=== PATIENT | female | born 1955 | race Caucasian/White ===

== ENCOUNTER 2017-09-06 09:51 | Emergency (ER) | payer SELFPAY ==
[2017-09-06] MEDS ORDERED: Sodium Chloride 0.9% 10 ML Syringe FLUSH PRN (09:54)
[2017-09-06] MEDS ORDERED: Sodium Chloride 0.9% 2.5 ML Syringe FLUSH PRN (09:54)
--- NOTE | 2017-09-06 10:12 | EDM.PDOC ---
ED HPI GENERAL MEDICAL PROBLEM - General Chief Complaint: Neuro Symptoms/Deficits Stated Complaint: ABM/ STROKE Time Seen by Provider: 09/06/17 09:55 Source of Information: Reports: Patient, EMS History Limitations: Reports: No Limitations - History of Present Illness INITIAL COMMENTS - FREE TEXT/NARRATIVE: HISTORY AND PHYSICAL: History of present illness: [Patient is brought to the emergency room by EMS with complaints of left-sided weakness and disorientation. 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 At 0935, another parent dropped off their child and found the patient with slurred speech and disoriented. The bystander gave 2 aspirin and called 911. Patient arrives to the emergency room with left-sided weakness noted to her upper and lower extremities. Her speech is slurred and slow. Left sided mouth droop is noted. Has a history of type 2 diabetes for which she takes metformin. No prior history of CVA or CAD. Denies bleeding and clotting disorders. No recent falls surgeries or blood draws. Reports a history of hypertension many years ago, but none recent. Does not take aspirin or blood thinner. No recent illness or injury. No fever or chills. Denies chest pain shortness of breath and difficulty breathing. She has not had any pain today. Reported some dizziness that occurred while she was at home feeling weak. No falls. No abdominal pain nausea or vomiting. No change in bowel or bladder. Denies mood changes. ] Review of systems: As per history of present illness and below otherwise all systems reviewed and negative. Past medical history: As per history of present illness and as reviewed below otherwise noncontributory. Surgical history: As per history of present illness and as reviewed below otherwise noncontributory. Social history: No reported history of drug or alcohol abuse. Family history: As per history of present illness and as reviewed below otherwise noncontributory. Physical exam: HEENT: Atraumatic, normocephalic. Oral mucous membranes are pink and moist. Lungs: Clear to auscultation, breath sounds equal bilaterally. Heart: S1S2, regular rate and rhythm. Abdomen: Obese, Soft, nondistended, nontender. Negative for masses, guarding or rebound. Pelvis: Stable nontender. Genitourinary: Deferred. Rectal: Deferred. Extremities: Atraumatic in appearance. No pedal swelling or cyanosis. She is unsteady on her feet when she gets up to step onto the scale. Neurovascular is otherwise unremarkable. Neuro: Awake, alert, oriented. Good historian. Mild facial droop is noted on the left side, particularly over her mouth. Speech is slow and mildly slurred. Left upper extremity pronator drift noted. Left upper and lower extremity weakness is appreciated. Cranial nerves II through XII unremarkable. Cerebellum unremarkable. Motor and sensory unremarkable throughout. Exam is otherwise nonfocal. Diagnostics: [CBC, CMP, PT/PTT/INR, troponin, TSH, head CT without contrast, EKG] Therapeutics: [tPa 9mg bolus, 81mg drip] Impression: [CVA] Plan: [CT shows no acute findings. Labs are unremarkable. EKG shows normal sinus rhythm with a rate of 69. Dr. Seo contacted at 1035 recommend starting TPA and transfer to [place] for possible thrombectomy. [place] is contacted at 1038 they are checking for an ICU bed and will call back to the ER. Dr. Seo is present in the emergency room at 10:48 AM and is evaluating patient. TPA is given at 1055. At 1106, Dr. Mccrary at [facility] ER in [place] agrees to accept patient in transfer. Flight is arranged by nursing staff. Patient begins to demonstrate improvement of facial droop and weakness 5 minutes after TPA is given. She is discharged from ER with flight team. Patient and her family are in agreement with today's discussion and plan for air transfer. Questions are answered and concerns are addressed. Definitive disposition and diagnosis as appropriate pending reevaluation and review of above. - Related Data Allergies Allergy/AdvReac Type Severity Reaction Status Date / Time Sulfa (Sulfonamide Allergy Cannot Verified 09/06/17 09:52 Antibiotics) Remember Home Meds: Home Meds metFORMIN [Glucophage XR] 1,000 mg PO BID 09/06/17 [History] ED ROS GENERAL - Review of Systems Review Of Systems: ROS reveals no pertinent complaints other than HPI. ED EXAM, NEURO - Physical Exam Exam: See Below Course - Vital Signs Last Recorded V/S: Last Vital Signs Temp 96.9 F 09/06/17 09:54 Pulse 87 09/06/17 11:10 Resp 18 09/06/17 11:10 BP 180/86 H 09/06/17 11:10 Pulse Ox 97 09/06/17 11:10 - Orders/Labs/Meds Orders: Active Orders 24 hr Category Date Time Status Assess Neurological Status [RC] ASDIRECTED Care 09/06/17 09:54 Active Bedrest [RC] ASDIRECTED Care 09/06/17 09:54 Active Blood Glucose Check, Bedside [RC] STAT Care 09/06/17 09:54 Active Cardiac Monitoring [RC] . DIRECTED Care 09/06/17 09:54 Active EKG Documentation Completion [RC] STAT Care 09/06/17 09:54 Active Height and Weight [RC] UPON Care 09/06/17 09:54 Active Initiate Acute Stroke Protocol [RC] STAT Care 09/06/17 09:54 Active NIH Stroke Scale [RC] ASDIRECTED Care 09/06/17 09:54 Active Nursing Bedside Swallow Screen [RC] ASDIRECTED Care 09/06/17 09:54 Active Oxygen Therapy [RC] ASDIRECTED Care 09/06/17 09:54 Active Stroke Education, General [] Click to Edit Care 09/06/17 09:54 Active Vital Signs [RC] Q15M Care 09/06/17 09:54 Active Alteplase [Activase] 90 mg Med 09/06/17 10:45 Active Premix Bag 1 bag IV .INFUSION Sodium Chloride 0.9% [Saline Flush] Med 09/06/17 09:54 Active 10 ml FLUSH ASDIRECTED PRN Sodium Chloride 0.9% [Saline Flush] Med 09/06/17 09:54 Active 2.5 ml FLUSH ASDIRECTED PRN Peripheral IV Insertion Adult [OM.PC] Stat Ot 09/06/17 09:54 Ordered Peripheral IV Insertion Adult [OM.PC] Stat Ot 09/06/17 09:54 Ordered Medication Orders Alteplase, Recombinant 90 mg/ (Premix) 0 mls @ 0 mls/hr IV .INFUSION KRISTY Last Admin: 09/06/17 11:04 Dose: 81 mls/hr Sodium Chloride (Saline Flush) 10 ml FLUSH ASDIRECTED PRN PRN Reason: Keep Vein Open Last Admin: 09/06/17 11:05 Dose: 10 ml Sodium Chloride (Saline Flush) 2.5 ml FLUSH ASDIRECTED PRN PRN Reason: Keep Vein Open Last Admin: 09/06/17 11:05 Dose: 2.5 ml Labs: Laboratory Tests 09/06/17 09/06/17 09/06/17 Range/Units 10:30 10:30 10:30 WBC 8.99 (4.0-11.0) K/uL RBC 4.61 (4.30-5.90) M/uL Hgb 13.0 (12.0-16.0) g/dL Hct 40.6 (36.0-46.0) % MCV 88.1 (80.0-98.0) fL MCH 28.2 (27.0-32.0) pg MCHC 32.0 (31.0-37.0) g/dL RDW Std Deviation 46.4 (28.0-62.0) fl RDW Coeff of Nahomy 14 (11.0-15.0) % Plt Count 318 (150-400) K/uL MPV 10.10 (7.40-12.00) fL Neut % (Auto) 55.4 (48.0-80.0) % Lymph % (Auto) 34.3 (16.0-40.0) % [place] % (Auto) 6.5 (0.0-15.0) % Eos % (Auto) 3.1 (0.0-7.0) % Baso % (Auto) 0.7 (0.0-1.5) % Neut # (Auto) 5.0 (1.4-5.7) K/uL Lymph # (Auto) 3.1 H (0.6-2.4) K/uL [place] # (Auto) 0.6 (0.0-0.8) K/uL Eos # (Auto) 0.3 (0.0-0.7) K/uL Baso # (Auto) 0.1 (0.0-0.1) K/uL Nucleated RBC % 0.0 /100WBC Nucleated RBCs # 0 K/uL INR 1.04 APTT 25.1 (18.6-31.3) SEC Sodium 135 L (136-145) mmol/L Potassium 3.8 (3.5-5.1) mmol/L Chloride 99 (98-107) mmol/L Carbon Dioxide 26.2 (21.0-32.0) mmol/L BUN 15 (7.0-18.0) mg/dL Creatinine 0.9 (0.6-1.0) mg/dL Est Cr Clr Drug Dosing TNP Estimated GFR (MDRD) > 60.0 ml/min Glucose 204 H (74-106) mg/dL Calcium 8.9 (8.5-10.1) mg/dL Total Bilirubin 0.4 (0.2-1.0) mg/dL AST 35 (15-37) IU/L ALT 33 (14-63) IU/L Alkaline Phosphatase 69 (46-116) U/L Troponin I < 0.050 (0.000-0.056) ng/mL Total Protein 8.3 H (6.4-8.2) g/dL Albumin 3.4 (3.4-5.0) g/dL Globulin 4.9 H (2.0-3.5) g/dL Albumin/Globulin Ratio 0.7 L (1.3-2.8) TSH 3rd Generation 1.23 (0.36-3.74) uIU/mL Meds: Medications Generic Name Dose Route Start Last Admin Trade Name Freq PRN Reason Stop Dose Admin Alteplase, Recombinant 90 mg/ 0 mls @ 0 mls/hr 09/06/17 10:45 09/06/17 11:04 Premix IV 81 mls/hr .INFUSION KRISTY Administration Sodium Chloride 10 ml 09/06/17 09:54 09/06/17 11:05 Saline Flush FLUSH 10 ml ASDIRECTED PRN Administration Keep Vein Open Sodium Chloride 2.5 ml 09/06/17 09:54 09/06/17 11:05 Saline Flush FLUSH 2.5 ml ASDIRECTED PRN Administration Keep Vein Open Discontinued Medications Generic Name Dose Route Start Last Admin Trade Name Freq PRN Reason Stop Dose Admin Alteplase, Recombinant Confirm 09/06/17 10:40 09/06/17 11:05 Activase Administered 09/06/17 10:41 Not Given Dose 100 mg .ROUTE .STK-MED ONE Departure - Departure Time of Disposition: 12:05 Disposition: DC/Tfer to Acute Hospital 02 Condition: Good Clinical Impression: CVA (cerebral vascular accident) - Discharge Information Forms: ED Department Discharge
--- NOTE | 2017-09-06 10:15 | CT ---
EXAMINATION: Non contrast CT head. Coronal and sagittal reformats. HISTORY: Stroke code FINDINGS: No evidence of intra or extra axial hemorrhage, mass, midline shift, hydrocephalus or edema. Mild pe riventricular and subcortical white matter hypodensities are noted. No hypoattenuation changes in the major vascular territories to suggest acute infarct. No abnormal intracranial calcifications are detected. Stable left vertebral vascular calcifications. Paranasal sinuses and mastoid air cells are well aerated without substantial findings. Orbits and gl obes are symmetric. Pituitary fossa appears unremarkable. Calvarium is intact. No evidence of skull fracture. IMPRESSION: 1. No acute intracranial findings. 2. Mild small vessel ischemic changes. The findings were called to ER 10:12 AM.
[2017-09-06] MEDS ORDERED: Alteplase 90 MG in Premix Bag 1 BAG IV SCH (10:45)
[2017-09-06 11:08] LABS: CHLORIDE,CL 99 mmol/L (98-107); SODIUM,NA 135 mmol/L (136-145)
--- NOTE | 2017-09-06 12:39 | EDM.PDOC ---
ED HPI GENERAL MEDICAL PROBLEM - General Chief Complaint: Neuro Symptoms/Deficits Stated Complaint: ABM/ STROKE Time Seen by Provider: 09/06/17 09:55 Source of Information: Reports: Patient, EMS History Limitations: Reports: No Limitations - History of Present Illness INITIAL COMMENTS - FREE TEXT/NARRATIVE: She was last observed to be normal at 8:50 am when a parent dropped off a child. . She reports that she developed developed dizziness/ imbalance, but is not sure when it started. She was noted to have slurred speech 9:35 by bystander. No history of stroke, TIA, bleeding, tumors, recent surgery. No vision changes, vertigo, CP, SOB, nausea, fever, headaches. - Related Data Allergies Allergy/AdvReac Type Severity Reaction Status Date / Time Sulfa (Sulfonamide Allergy Cannot Verified 09/06/17 09:52 Antibiotics) Remember Home Meds: Home Meds metFORMIN [Glucophage XR] 1,000 mg PO BID 09/06/17 [History] Past Medical History Endocrine/Metabolic History: Reports: Diabetes, Type II Social & Family History - Family History Other Cardiac Family History: Father had [place] - Tobacco Use Smoking Status *Q: Never Smoker - Caffeine Use Caffeine Use: Reports: None - Recreational Drug Use Recreational Drug Use: No ED ROS GENERAL - Review of Systems Review Of Systems: See Below Constitutional: Reports: No Symptoms HEENT: Reports: No Symptoms Respiratory: Reports: No Symptoms Cardiovascular: Reports: No Symptoms GI/Abdominal: Reports: No Symptoms : Reports: No Symptoms Musculoskeletal: Reports: No Symptoms Neurological: Reports: Dizziness, Weakness ED EXAM, NEURO - Physical Exam Exam: See Below Comments: Constitutional: No acute distress Psychiatric: Mood/Affect: normal/appropriate Neurological: NIHSS 5 Mental Status: Naming and repetition intact. General: Normal activity, good hygiene, appropriate appearance. Level of consciousness: Awake, alert. Concentration/Attention Span: Normal. Comprehension/Praxis: Able to perform a three step command. Fund of Knowledge/memory: Adequate recent and remote recall. Language: Fluent and articulate without evidence of aphasia Cranial Nerves: Pupils equally round and reactive to light. Visual manzo full to confrontation. Gaze conjugate, EOMI. Sensation intact and symmetric to light touch. Mild left facial droop. Mild dysarthria. . Palate elevates symmetrically. Normal shrug bilaterally. Tongue protrudes midline Motor: Normal tone in all groups. Drift in left upper and lower limb. Power 4/ 5 in left intrinsic hand muscles, o/w 5/5 throughout. . Sensation: Sensation is intact to light touch and temp, no extinction Deep tendon reflexes: Diminished throughout. Coordination: Finger to nose impaired on the left, HTS intact bilaterally Gait: Requires 2 person assist to stand HEENT: Eyes: non icteric, Mouth: moist mucus membranes Cardiovascular: RRR, no obvious murmur Respiratory: clear lungs GI: non tender Musculoskeletal: non tender Addendum repeat examination 11:55 after TPA, power 5/5 throughout, no drift, minimal left NL flattening. Course - Vital Signs Last Recorded V/S: Last Vital Signs Temp 36.1 C 09/06/17 09:54 Pulse 87 09/06/17 11:10 Resp 18 09/06/17 11:10 BP 180/86 H 09/06/17 11:10 Pulse Ox 97 09/06/17 11:10 - Orders/Labs/Meds Labs: Laboratory Tests 09/06/17 09/06/17 09/06/17 Range/Units 10:30 10:30 10:30 WBC 8.99 (4.0-11.0) K/uL RBC 4.61 (4.30-5.90) M/uL Hgb 13.0 (12.0-16.0) g/dL Hct 40.6 (36.0-46.0) % MCV 88.1 (80.0-98.0) fL MCH 28.2 (27.0-32.0) pg MCHC 32.0 (31.0-37.0) g/dL RDW Std Deviation 46.4 (28.0-62.0) fl RDW Coeff of Nahomy 14 (11.0-15.0) % Plt Count 318 (150-400) K/uL MPV 10.10 (7.40-12.00) fL Neut % (Auto) 55.4 (48.0-80.0) % Lymph % (Auto) 34.3 (16.0-40.0) % [place] % (Auto) 6.5 (0.0-15.0) % Eos % (Auto) 3.1 (0.0-7.0) % Baso % (Auto) 0.7 (0.0-1.5) % Neut # (Auto) 5.0 (1.4-5.7) K/uL Lymph # (Auto) 3.1 H (0.6-2.4) K/uL Wake # (Auto) 0.6 (0.0-0.8) K/uL Eos # (Auto) 0.3 (0.0-0.7) K/uL Baso # (Auto) 0.1 (0.0-0.1) K/uL Nucleated RBC % 0.0 /100WBC Nucleated RBCs # 0 K/uL INR 1.04 APTT 25.1 (18.6-31.3) SEC Sodium 135 L (136-145) mmol/L Potassium 3.8 (3.5-5.1) mmol/L Chloride 99 (98-107) mmol/L Carbon Dioxide 26.2 (21.0-32.0) mmol/L BUN 15 (7.0-18.0) mg/dL Creatinine 0.9 (0.6-1.0) mg/dL Est Cr Clr Drug Dosing TNP Estimated GFR (MDRD) > 60.0 ml/min Glucose 204 H (74-106) mg/dL Calcium 8.9 (8.5-10.1) mg/dL Total Bilirubin 0.4 (0.2-1.0) mg/dL AST 35 (15-37) IU/L ALT 33 (14-63) IU/L Alkaline Phosphatase 69 (46-116) U/L Troponin I < 0.050 (0.000-0.056) ng/mL Total Protein 8.3 H (6.4-8.2) g/dL Albumin 3.4 (3.4-5.0) g/dL Globulin 4.9 H (2.0-3.5) g/dL Albumin/Globulin Ratio 0.7 L (1.3-2.8) TSH 3rd Generation 1.23 (0.36-3.74) uIU/mL Meds: Medications Discontinued Medications Generic Name Dose Route Start Last Admin Trade Name Freq PRN Reason Stop Dose Admin Alteplase, Recombinant Confirm 09/06/17 10:40 09/06/17 11:05 Activase Administered 09/06/17 10:41 Not Given Dose 100 mg .ROUTE .STK-MED ONE Alteplase, Recombinant 90 mg/ 0 mls @ 0 mls/hr 09/06/17 10:45 09/06/17 11:04 Premix IV 81 mls/hr .INFUSION KRISTY Administration Sodium Chloride 10 ml 09/06/17 09:54 09/06/17 11:05 Saline Flush FLUSH 10 ml ASDIRECTED PRN Administration Keep Vein Open Sodium Chloride 2.5 ml 09/06/17 09:54 09/06/17 11:05 Saline Flush FLUSH 2.5 ml ASDIRECTED PRN Administration Keep Vein Open Departure - Departure Time of Disposition: 12:05 Disposition: DC/Tfer to Acute Hospital 02 Condition: Good Clinical Impression: CVA (cerebral vascular accident) - Discharge Information Referrals: PCP,None [Primary Care Provider] - Forms: ED Department Discharge - Problem List Review Problem List Initiated/Reviewed/Updated: Yes - Assessment/Plan Plan: CT head multiple areas of hypodensity in the white matter Impression: TIA vs. aborted stroke, s/p TPA. Given resolving symptoms, I don t recommend urgent eval for LVO / thombectomy.She has been accepted for transfer to [place] ED. Admission for close monitoring followind TPA which I discussed with her. I explained to her that she is welcome to follow up with me in clinic after discharge.
== END 2017-09-06 12:05 ==
LOC: MW.ED 09:51
DX: I63.9 Cerebral infarction, unspecified (principal); Z88.2 Allergy status to sulfonamides; E11.9 Type 2 diabetes mellitus without complications; Z79.84 Long term (current) use of oral hypoglycemic drugs
CPT/HCPCS: 36415; 70450; 80053; 84443; 84484; 85025; 85610; 85730; 93005; 96365; 99291; J2997; 99285

== ENCOUNTER 2021-12-14 09:56 | Inpatient (IN) | payer MEDICAID ==
[2021-12-14] MEDS ORDERED: Sodium Chloride 0.9% 1,000 ML IV SCH (10:15)
[2021-12-14 10:58] LABS: POTASSIUM,K 3.4 mmol/L (3.5-5.1)
[2021-12-14] MEDS ORDERED: Pantoprazole 40 MG in Sodium Chloride 0.9% 10 ML IVPUSH ONE (11:45)
[2021-12-14] MEDS ORDERED: Lactated Ringers 1,000 ML IV SCH ×2 (13:15→14:30)
[2021-12-14] MEDS: Lactated Ringers 1,000 ML IV SCH (17:58)
[2021-12-14] MEDS ORDERED: metroNIDAZOLE/Normal Saline 500 MG in Premix Bag 1 BAG IV SCH (18:00)
[2021-12-14] MEDS ORDERED: Ciprofloxacin in D5W 400 MG in Premix Bag 1 BAG IV SCH ×2 (18:15)
[2021-12-14] MEDS ORDERED: Ondansetron 4 MG/2 ML SDV IVPUSH PRN (18:20)
[2021-12-14] MEDS ORDERED: Glucagon,Human Recombinant 1 MG Vial IM PRN (19:15)
[2021-12-14] MEDS ORDERED: 50% Dextrose in Water 50 ML Syringe IVPUSH PRN (19:15)
[2021-12-14] MEDS: Pantoprazole 40 MG in Sodium Chloride 0.9% 10 ML IVPUSH SCH (20:02)
[2021-12-14] MEDS ORDERED: Lactated Ringers 1,000 ML IV ONE (23:36)
[2021-12-15] MEDS: Piperacillin/Tazobactam 3.375 GM in Sodium Chloride 0.9% 50 ML IV SCH ×4 (00:15→21:45)
[2021-12-15] MEDS: Lactated Ringers 1,000 ML IV SCH ×2 (05:30→15:08)
[2021-12-15 07:10] LABS: CARBON DIOXIDE,CO2 22.4 mmol/L (21.0-32.0); POTASSIUM,K 3.2 mmol/L (3.5-5.1)
[2021-12-15 07:20] LABS: HEMOGLOBIN A1C 6.9 %
[2021-12-15] MEDS: Pantoprazole 40 MG in Sodium Chloride 0.9% 10 ML IVPUSH SCH ×2 (09:13→21:45)
[2021-12-15] MEDS ORDERED: Fluconazole 100 MG Tab PO ONE (09:15)
[2021-12-15] MEDS ORDERED: Fluconazole 150 MG Tab PO ONE (09:15)
[2021-12-15] MEDS: Insulin Aspart 100 Units/ML 3 ML Pen SUBCUT SCH ×3 (09:16→19:29)
[2021-12-15] MEDS: Potassium Chloride 20 MEQ Tab.ER PO SCH ×3 (09:45→19:25)
[2021-12-15] MEDS: Phosphorus #1 250 MG Tab PO SCH ×3 (13:11→19:25)
[2021-12-15 13:23] LABS: BILIRUBIN INDIRECT 0.3
[2021-12-15] MEDS ORDERED: Morphine 2 MG/ML SYRINGE IVPUSH ONE (14:51)
[2021-12-15] MEDS: Nystatin Crm 30 GM Tube TOP SCH ×2 (16:49→21:45)
[2021-12-16] MEDS: Phosphorus #1 250 MG Tab PO SCH ×5 (00:30→23:01)
[2021-12-16] MEDS: Lactated Ringers 1,000 ML IV SCH ×3 (02:55→19:47)
[2021-12-16] MEDS: Piperacillin/Tazobactam 3.375 GM in Sodium Chloride 0.9% 50 ML IV SCH ×4 (03:40→21:02)
[2021-12-16 06:46] LABS: CARBON DIOXIDE,CO2 21.6 mmol/L (21.0-32.0); POTASSIUM,K 4.4 mmol/L (3.5-5.1)
[2021-12-16] MEDS: Insulin Aspart 100 Units/ML 3 ML Pen SUBCUT SCH ×3 (06:58→17:48)
[2021-12-16] MEDS: Nystatin Crm 30 GM Tube TOP SCH ×3 (06:59→22:46)
[2021-12-16] MEDS ORDERED: Magnesium Sulfate/Water 2 GM in Premix Bag 1 BAG IV ONE (08:06)
[2021-12-16] MEDS: Pantoprazole 40 MG in Sodium Chloride 0.9% 10 ML IVPUSH SCH ×2 (08:39→21:01)
[2021-12-16] MEDS: Potassium Chloride 20 MEQ Tab.ER PO SCH ×2 (08:43→12:34)
[2021-12-16] MEDS: Acetaminophen 325 MG Tab PO PRN ×3 (10:30→21:43)
[2021-12-16] MEDS ORDERED: ferumoxytoL 510 MG in Sodium Chloride 0.9% 100 ML IV ONE (10:30)
[2021-12-17] MEDS: Piperacillin/Tazobactam 3.375 GM in Sodium Chloride 0.9% 50 ML IV SCH ×2 (03:01→08:32)
[2021-12-17] MEDS: Lactated Ringers 1,000 ML IV SCH ×3 (03:52→18:56)
[2021-12-17] MEDS: Phosphorus #1 250 MG Tab PO SCH (06:32)
[2021-12-17] MEDS: Nystatin Crm 30 GM Tube TOP SCH ×3 (06:34→21:00)
[2021-12-17 08:24] LABS: CARBON DIOXIDE,CO2 17.8 mmol/L (21.0-32.0); POTASSIUM,K 4.9 mmol/L (3.5-5.1)
[2021-12-17] MEDS: Pantoprazole 40 MG in Sodium Chloride 0.9% 10 ML IVPUSH SCH ×2 (08:32→20:18)
[2021-12-17] MEDS: Insulin Aspart 100 Units/ML 3 ML Pen SUBCUT SCH ×3 (08:57→18:06)
[2021-12-17] MEDS ORDERED: Acidophilus with Citrus Pectin/L.acidophilus Tab PO SCH (09:00)
[2021-12-17] MEDS ORDERED: Loperamide 2 MG Cap PO ONE ×2 (09:19→23:25)
[2021-12-17] MEDS ORDERED: Lactated Ringers 500 ML IV ONE (09:23)
[2021-12-17] MEDS: Acetaminophen 325 MG Tab PO PRN ×2 (09:34→18:45)
[2021-12-17] MEDS: Potassium Chloride 20 MEQ Tab.ER PO SCH (09:36)
[2021-12-17] MEDS: Albuterol/Ipratropium 3.0-0.5 MG/3 ML Neb Soln NEB PRN ×3 (11:00→20:35)
[2021-12-17] MEDS ORDERED: Lactated Ringers 1,000 ML IV ONE ×2 (12:10→13:35)
[2021-12-17] MEDS: Meropenem Premix 1 GM in Premix Bag 1 BAG IV SCH (12:44)
[2021-12-17] MEDS ORDERED: Lactated Ringers 500 ML IV SCH (17:30)
[2021-12-17] MEDS ORDERED: Norepinephrine 4 MG in Dextrose 5% in Water 246 ML IV SCH ×2 (21:00)
[2021-12-18 00:10] LABS: CARBON DIOXIDE,CO2 17.8 mmol/L (21.0-32.0); POTASSIUM,K 5.5 mmol/L (3.5-5.1)
[2021-12-18] MEDS: Meropenem Premix 1 GM in Premix Bag 1 BAG IV SCH (00:52)
[2021-12-18] MEDS ORDERED: Lactated Ringers 1,000 ML IV ONE (02:27)
[2021-12-18] MEDS: Lactated Ringers 1,000 ML IV SCH (04:09)
[2021-12-18 04:42] LABS: CARBON DIOXIDE,CO2 18.4 mmol/L (21.0-32.0); POTASSIUM,K 5.4 mmol/L (3.5-5.1)
[2021-12-18] MEDS: Nystatin Crm 30 GM Tube TOP SCH (05:00)
[2021-12-18] MEDS ORDERED: LORazepam 2 MG/ML SDV IVPUSH PRN (06:31)
[2021-12-18] MEDS: Morphine 2 MG/ML SYRINGE IVPUSH PRN ×3 (08:25→23:42)
[2021-12-18] MEDS: Albuterol/Ipratropium 3.0-0.5 MG/3 ML Neb Soln NEB PRN ×3 (08:31→22:28)
[2021-12-18] MEDS ORDERED: Loperamide 2 MG Cap PO PRN (22:45)
[2021-12-19] MEDS: Albuterol/Ipratropium 3.0-0.5 MG/3 ML Neb Soln NEB PRN ×2 (04:16→18:24)
[2021-12-19] MEDS: Morphine 2 MG/ML SYRINGE IVPUSH PRN (22:07)
[2021-12-20] MEDS: Morphine 2 MG/ML SYRINGE IVPUSH PRN (20:38)
[2021-12-20] MEDS: Albuterol/Ipratropium 3.0-0.5 MG/3 ML Neb Soln NEB PRN (21:34)
[2021-12-21] MEDS: Morphine 2 MG/ML SYRINGE IVPUSH PRN ×2 (14:27→23:27)
[2021-12-22 10:53] LABS: CARBON DIOXIDE,CO2 22.7 mmol/L (21.0-32.0)
[2021-12-22] MEDS ORDERED: Piperacillin/Tazobactam 3.375 GM in Sodium Chloride 0.9% 50 ML IV SCH (13:30)
[2021-12-22] MEDS ORDERED: Ciprofloxacin in D5W 400 MG in Premix Bag 1 BAG IV SCH ×2 (14:00)
[2021-12-22] MEDS: metroNIDAZOLE/Normal Saline 500 MG in Premix Bag 1 BAG IV SCH ×2 (14:23→21:08)
[2021-12-22] MEDS: Ciprofloxacin in D5W 400 MG in Premix Bag 1 BAG IV SCH ×2 (15:51)
[2021-12-23] MEDS: Ciprofloxacin in D5W 400 MG in Premix Bag 1 BAG IV SCH ×2 (04:08)
[2021-12-23] MEDS: metroNIDAZOLE/Normal Saline 500 MG in Premix Bag 1 BAG IV SCH (05:55)
[2021-12-23] MEDS ORDERED: Furosemide 40 MG/4 ML VIAL IVPUSH ONE (09:21)
[2021-12-23] MEDS ORDERED: Furosemide 40 MG/4 ML VIAL ONE (11:41)
[2021-12-23] MEDS: metroNIDAZOLE 250 MG Tab PO SCH ×2 (14:15→18:25)
[2021-12-23] MEDS: Ciprofloxacin 500 MG Tab PO SCH ×2 (14:15→20:23)
[2021-12-24] MEDS: metroNIDAZOLE 250 MG Tab PO SCH ×3 (00:47→16:36)
[2021-12-24] MEDS: Ciprofloxacin 500 MG Tab PO SCH ×2 (09:10→20:12)
[2021-12-24 09:40] LABS: CARBON DIOXIDE,CO2 21.7 mmol/L (21.0-32.0); POTASSIUM,K 4.3 mmol/L (3.5-5.1)
[2021-12-24] MEDS ORDERED: Furosemide 40 MG/4 ML VIAL IVPUSH ONE (11:44)
[2021-12-24] MEDS ORDERED: Furosemide 40 MG/4 ML VIAL ONE (16:09)
[2021-12-25] MEDS: metroNIDAZOLE 250 MG Tab PO SCH ×3 (01:52→17:23)
[2021-12-25] MEDS: Ciprofloxacin 500 MG Tab PO SCH ×2 (09:02→20:17)
[2021-12-25 10:44] LABS: CARBON DIOXIDE,CO2 25.8 mmol/L (21.0-32.0); POTASSIUM,K 4.1 mmol/L (3.5-5.1)
[2021-12-25] MEDS ORDERED: Furosemide 40 MG/4 ML VIAL IVPUSH ONE (12:28)
[2021-12-25] MEDS ORDERED: Melatonin 3 MG Tab PO PRN (15:29)
[2021-12-26] MEDS: metroNIDAZOLE 250 MG Tab PO SCH ×3 (00:46→17:22)
[2021-12-26 06:34] LABS: CARBON DIOXIDE,CO2 24.8 mmol/L (21.0-32.0); POTASSIUM,K 3.9 mmol/L (3.5-5.1)
[2021-12-26] MEDS: Ciprofloxacin 500 MG Tab PO SCH (09:31)
[2021-12-26] MEDS ORDERED: Iopamidol 755 MG/ML 500 ML Multipack Bottle IVPUSH STA (15:01)
== END 2021-12-26 17:45 | DRG 871 ==
LOC: MW.ED 09:56 → MW.MS 12:50 → MW.ICU 12-17 14:43 → MW.MS 12-18 07:56
PROVIDERS: ADMIT Student in an Organized Health Care Education/Training Program; ATTEND Student in an Organized Health Care Education/Training Program
PROC: 30233N1 Transfusion of Nonautologous Red Blood Cells into Peripheral Vein, Percutaneous Approach (ICD-10-PCS; principal; 2021-12-14)
PROC: 3E033XZ Introduction of Vasopressor into Peripheral Vein, Percutaneous Approach (ICD-10-PCS; 2021-12-14)
PROC: 3E03329 Introduction of Other Anti-infective into Peripheral Vein, Percutaneous Approach (ICD-10-PCS; 2021-12-14)
PROC: 0HBT3ZX Excision of Right Breast, Percutaneous Approach, Diagnostic (ICD-10-PCS; 2021-12-16)
DX: A41.9 Sepsis, unspecified organism (principal); R65.21 Severe sepsis with septic shock; N17.9 Acute kidney failure, unspecified; K57.20 Diverticulitis of large intestine with perforation and abscess without bleeding; N30.01 Acute cystitis with hematuria; D50.9 Iron deficiency anemia, unspecified; E11.9 Type 2 diabetes mellitus without complications; Z20.822 Contact with and (suspected) exposure to COVID-19; Z51.5 Encounter for palliative care; Z66 Do not resuscitate; C50.911 Malignant neoplasm of unspecified site of right female breast; K74.60 Unspecified cirrhosis of liver; K80.20 Calculus of gallbladder without cholecystitis without obstruction; N83.8 Other noninflammatory disorders of ovary, fallopian tube and broad ligament; Z78.1 Physical restraint status; Z79.4 Long term (current) use of insulin; Z88.2 Allergy status to sulfonamides
CPT/HCPCS: 19083-RT; 36410; 36415; 36430; 51702; 51798; 71045; 71045-26; 71250; 71250-26; 74176; 74176-26; 74178; 74178-26; 76642-RT; 76642-RT-26; 76705; 76705-26; 80048; 80053; 80076; 81001; 82272; 82728; 82947; 83036; 83540; 83550; 83605; 83690; 83735; 84100; 84484; 85014; 85018; 85025; 85027; 85610; 86850; 86900; 86901; 86920; 87040; 87045; 87046; 87086; 87324; 87328; 87329; 87449; 87899; 93005; 93010; 96360; 97110-GP; 97112-GP; 97163-GP; 97530-GP; 99221; 99231; 99232; 99233; 99239; 99285-25; A9270-GY; C9113; J0744; J1815-GY; J1940; J2060; J2185; J2270; J2405; J2543; J3370; J3475; J3490; J7030; J7050; J7120; J7620-GY; P9016; Q0138; Q9967; U0002